=== PATIENT | female | born 1955 | race Caucasian/White ===

== ENCOUNTER 2016-10-23 18:56 | Emergency (ER) | payer BC, OTHER ==
--- NOTE | 2016-10-23 21:19 | UC ---
Ear Complaint HPI - History of Current Complaint Chief Complaint: UCDizziness Stated Complaint: LEFT EAR PAIN,VERTIGO Time Seen by Provider: 10/23/16 21:04 Hx Obtained From: Patient ?: No Onset/Duration: Sudden Onset - diminished hearing with tinnitis with rushing sound about 4:30PM., Lasting Hours - 5, Still Present Severity Initially: Mild Severity Currently: Mild Aggravating Factors: Nothing Alleviating Factors: Nothing Associated Signs/Symptoms: Positive: Hearing Loss Related History: Other (Noted In Comments) - Weird feeling in the head. - Allergies/Home Medications Allergies/Adverse Reactions: Allergies Allergy/AdvReac Type Severity Reaction Status Date / Time Losartan [From Cozaar] Allergy Severe Swelling Verified 10/23/16 20:57 Of Face,Lips,& Throat Home Medications: Home Medications Atorvastatin* [Lipitor 20 MG*] 20 mg PO QPM 10/23/16 [History Confirmed 10/23/16 ] Cholecalciferol [D 1000] 1,000 unit PO DAILY 10/23/16 [History Confirmed ] Clopidogrel TAB* [Plavix TAB*] 75 mg PO DAILY 10/23/16 [History Confirmed ] Fluoxetine HCl [Prozac] 40 mg PO DAILY 10/23/16 [History Confirmed 10/23/16] Furosemide TAB* [Lasix TAB*] 40 mg PO DAILY 10/23/16 [History Confirmed 10/23/16 ] Latanoprost 0.005% OPTH (NF) [Xalatan 0.005% OPTH*] 1 drop BOTH EYES DAILY 10/23 [History Confirmed 10/23/16] [place]-3 Fatty Acids [Fish Oil] 1,000 mg PO DAILY 10/23/16 [History Confirmed ] Pantoprazole TAB (NF) [Protonix TAB (NF)] 40 mg PO DAILY 10/23/16 [History Confirmed 10/23/16] Potassium Chlor TAB* [Klor Con ER TAB 10 MEQ*] 10 meq PO DAILY 10/23/16 [ History Confirmed 10/23/16] PMH/Surg Hx/FS Hx/Imm Hx Cardiovascular History Of: Reports: Hypertension Neurological History Of: Reports: TIA - 10 years ago. - Surgical History Surgical History: Yes Surgery Procedure, Year, and Place: RIGHT ROTATOR CUFF 2015. LEFT ANKLE ORAF. GALL BLADDER REMOVAL. TONSILLECTOMY - Family History Known Family History: Positive: Cardiac Disease, Hypertension Negative: Diabetes - Social History Occupation: Employed Full-time - [employer] Lives: Alone Alcohol Use: Weekly Substance Use Type: None Smoking Status (MU): Former Smoker Have You Smoked in the Last Year: No When Did the Patient Quit Smoking/Using Tobacco: QUIT AT AGE 36 Review of Systems ENT: Other - Hearing loss Respiratory: Cough - for the last month All Other Systems Reviewed And Are Negative: Yes Physical Exam Triage Information Reviewed: Yes Appearance: Well-Appearing, No Pain Distress, Well-Nourished Vital Signs: Initial Vital Signs Temp 97.5 F 10/23/16 21:01 Pulse 87 10/23/16 21:01 Resp 18 10/23/16 21:01 BP 154/85 10/23/16 21:01 Pulse Ox 99 10/23/16 21:01 Vital Signs Reviewed: Yes Eyes: Positive: Conjunctiva Clear ENT: Positive: Pharynx normal, Nasal congestion - with allergic changes., TMs normal - but ? retraction left TM, Other: - Vance test localizes to the left Neck exam: Normal Respiratory: Positive: Lungs clear, Wheezing - expiratory with coughing. Cardiovascular Exam: Normal Musculoskeletal Exam: Normal Neurological Exam: Normal Psychological Exam: Normal Skin Exam: Normal Ear Complaint Course/Dx - Differential Dx/Diagnosis Differential Diagnosis/HQI/PQRI: Barotrauma, Otitis Media, Perforated TM Provider Diagnoses: Acute left conductive hearing loss. Allergic rhinitis. Acute bronchospasm Discharge - Discharge Plan Condition: Stable Disposition: HOME Prescriptions: predniSONE TAB* [Deltasone TAB*] 20 mg PO DAILY #18 tab Patient Education Materials: Hearing Loss (GEN), Eustachian Tube Dysfunction ( GEN), Allergic Rhinitis (ED), Bronchospasm (ED), Prednisone (By mouth) Additional Instructions: You are free to see any ENT in [place]. Call the offices and explain that you were instructed to make a follow up tomorrow. NEILMED SINUS RINSE: CHECK OUT AT [facility] Saline nasal wash helps with mucous, allergies and congestion. It can be used up to twice a day or only as needed. Use lukewarm tap water. It does not have to be sterilized or distilled water. Do 1/3 on each side and snort out of both nostrils. Repeat the process with 1/6 of the bottle on each side with snorting in between to finish the solution in the bottle NASAL SPRAYS AND DROPS: Afrin in the PUMP/ MIST bottle. Tilt your head down and look at the floor while doing a strong sniff with the spray. Decongestant nasal sprays and drops often give dramatic relief from congestion. They are often recommended for patients with sinus infection to assist with sinus drainage. Persons with high blood pressure should consult the doctor before using these nasal sprays. Afrin and Grant-Synephrine are common [id number] preparations. They should not be used for more than five days, as "rebound" congestion can occur - - the congestion flares as the drug wears off. A way of dealing with this rebound congestion problem is to medicate only one nostril each time, allowing the other nostril to recover from the medicine' s effects. When you no longer need the drug during the day, spray only one nostril each night. This helps you sleep well without severe rebound congestion. Call the doctor if you develop severe headache, palpitations, or chest pain.
[2016-10-23 21:56] VITALS: BP 155/79
== END 2016-10-23 22:00 | disposition home or self-care (01) ==
LOC: UCCORT 18:56
DX: H90.2 Conductive hearing loss, unspecified (principal); J30.9 Allergic rhinitis, unspecified; J98.01 Acute bronchospasm; Z88.8 Allergy status to other drugs, medicaments and biological substances; I10 Essential (primary) hypertension; Z86.73 Personal history of transient ischemic attack (TIA), and cerebral infarction without residual deficits; Z79.01 Long term (current) use of anticoagulants; Z90.49 Acquired absence of other specified parts of digestive tract; Z87.891 Personal history of nicotine dependence
CPT/HCPCS: 99202; G0463

== ENCOUNTER 2018-03-20 11:28 | Emergency (ER) | payer OTHER ==
[2018-03-20 11:59] VITALS: BP 148/49
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
--- NOTE | 2018-03-20 13:02 | RAD ---
HISTORY: right wrist pain COMPARISONS: None VIEWS: 3, Frontal, lateral, and oblique views of the right wrist FINDINGS: BONE DENSITY: Normal. BONES: There is no displaced fracture. JOINTS: There is osteoarthritis of the first CMC joint. ALIGNMENT: There is no dislocation. SOFT TISSUES: Unremarkable. OTHER FINDINGS: None. IMPRESSION: OSTEOARTHRITIS. NO ACUTE OSSEOUS INJURY. IF SYMPTOMS PERSIST, RECOMMEND REPEAT IMAGING.
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
== END 2018-03-20 13:36 | disposition home or self-care (01) ==
LOC: UCCORT 11:28
DX: S63.501A Unspecified sprain of right wrist, initial encounter (principal); S13.9XXA Sprain of joints and ligaments of unspecified parts of neck, initial encounter; S20.219A Contusion of unspecified front wall of thorax, initial encounter; S20.20XA Contusion of thorax, unspecified, initial encounter; V43.92XA Unspecified car occupant injured in collision with other type car in traffic accident, initial encounter; Y93.89 Activity, other specified; Y92.9 Unspecified place or not applicable; Z88.8 Allergy status to other drugs, medicaments and biological substances; I10 Essential (primary) hypertension; Z88.6 Allergy status to analgesic agent; Z87.891 Personal history of nicotine dependence
CPT/HCPCS: 72040; 99212; G0463

== ENCOUNTER 2019-04-09 21:04 | Emergency (ER) | payer MEDICARE, OTHER ==
[2019-04-09 21:27] VITALS: BP 157/69
--- NOTE | 2019-04-09 21:41 | UC ---
General HPI - HPI Summary HPI Summary: 1. itchy rash to both lower legs and R forearm x 10 days. it began after gardening. pt notes was blister like as onset but is now scabbed from itching. L knee has one new line that is blister like. 2. she now has a second rash that is different x 1 day. it is red, involves her trunk and is hive like plus very itchy. pt denies any new exposures, illness. she self tx with benadryl and a topical steroid. - History of Current Complaint Chief Complaint: UCRash Stated Complaint: RASH BACK Time Seen by Provider: 04/09/19 21:23 Hx Obtained From: Patient Onset/Duration: Gradual Onset Timing: Constant Pain Intensity: 0 Associated Signs & Symptoms: Negative: Fever - Allergy/Home Medications Allergies/Adverse Reactions: Allergies Allergy/AdvReac Type Severity Reaction Status Date / Time losartan [From [facility]] Allergy Swelling Verified 03/20/18 11:48 Of Face,Lips,& Throat Home Medications: Home Medications Metoprolol Succinate XL TAB* [Toprol XL TAB*] 25 mg PO DAILY 04/09/19 [History Confirmed 04/09/19] amLODIPine TAB* [Norvasc 5 mg TAB*] 10 mg PO DAILY 04/09/19 [History Confirmed 04/09/19] PMH/Surg Hx/FS Hx/Imm Hx Endocrine History: Dyslipidemia Cardiovascular History: Hypertension GI/ History: Gastroesophageal Reflux Psychological History: Depression - Surgical History Surgical History: Yes Surgery Procedure, Year, and Place: RIGHT ROTATOR CUFF 2015. LEFT ANKLE ORAF. GALL BLADDER REMOVAL. TONSILLECTOMY - Family History Known Family History: Positive: Cardiac Disease, Hypertension Negative: Diabetes - Social History Alcohol Use: 1 wine daily Substance Use Type: None Smoking Status (MU): Former Smoker Have You Smoked in the Last Year: No When Did the Patient Quit Smoking/Using Tobacco: 1990 Review of Systems All Other Systems Reviewed And Are Negative: Yes Constitutional: Negative: Fever, Chills Skin: Positive: Rash Respiratory: Negative: Shortness Of Breath, Cough Physical Exam Triage Information Reviewed: Yes Appearance: Well-Appearing Vital Signs: Initial Vital Signs Temp 98.1 F 04/09/19 21:17 Pulse 70 04/09/19 21:17 Resp 20 04/09/19 21:17 BP 157/69 04/09/19 21:17 Pulse Ox 98 04/09/19 21:17 Vital Signs Reviewed: Yes Eyes: Positive: Conjunctiva Clear Neck: Positive: Supple Respiratory: Positive: No respiratory distress Musculoskeletal: Positive: ROM Intact Neurological: Positive: Alert Psychological: Positive: Age Appropriate Behavior Skin Exam: Normal Skin: Positive: Rashes - 1. linear excoriated areas to both lower legs and R forearm that have scabbed. no erythema, streaking, burrows, blistering and not petechial. 2. red areas on trunk that are confluent on her back. none are petechial, scaley or blistering. this rash does micheal. Course/Dx - Differential Dx - Multi-Symptom Differential Diagnoses: Other - does not look c/w infestations, fungal or bacterial infections. legs c/w contact dermatitis and trunk appears c/w hives. will tx with po steroids and close f/u for rechck. - Diagnoses Provider Diagnosis: Hives, Contact dermatitis Discharge - Sign-Out/Discharge Documenting (check all that apply): Patient Departure All imaging exams completed and their final reports reviewed: No Studies - Discharge Plan Condition: Stable Disposition: HOME Prescriptions: predniSONE TAB* [Deltasone 20 MG TAB*] 40 mg PO DAILY 5 Days #10 tab Patient Education Materials: Contact Dermatitis (DC), Urticaria (ED) Referrals: Nell Renteria MD [Primary Care Provider] - 3 Days - Billing Disposition and Condition Condition: STABLE Disposition: Home
[2019-04-09] MEDS ORDERED: predniSONE TAB* 20 MG PO ONE (21:46)
== END 2019-04-09 21:55 | disposition home or self-care (01) ==
LOC: UCCORT 21:04
DX: L50.9 Urticaria, unspecified (principal); L25.9 Unspecified contact dermatitis, unspecified cause; I10 Essential (primary) hypertension; Z87.891 Personal history of nicotine dependence
CPT/HCPCS: 99212; G0463; J7512

== ENCOUNTER 2019-07-31 14:01 | Emergency (ER) | payer MEDICARE ==
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
[2019-07-31 14:40] VITALS: BP 135/106
[2019-07-31] MEDS ORDERED: Lidocaine 1% MPF ** 5 ML VIAL INJ ONE (15:09)
--- NOTE | 2019-07-31 15:43 | UC ---
Skin Complaint HPI - HPI Summary HPI Summary: 64-year-old woman comes in with a chief complaint of painful swelling in the left lower back. Started several days ago with what she thought was a pimple. Its gradually been growing and is more tender to palpation. No fevers or chills. No history of MRSA. - History of Current Complaint Chief Complaint: UCSkin Time Seen by Provider: 07/31/19 15:03 Stated Complaint: ABCESS ON BACK Pain Intensity: 7 - Allergy/Home Medications Allergies/Adverse Reactions: Allergies Allergy/AdvReac Type Severity Reaction Status Date / Time losartan [From Cozaar] Allergy Swelling Verified 07/31/19 14:40 Of Face,Lips,& Throat Home Medications: Home Medications Bupropion XL* [Wellbutrin XL *] 150 mg PO DAILY 07/31/19 [History Confirmed 12/14] PMH/Surg Hx/FS Hx/Imm Hx Previously Healthy: Yes Endocrine History: Dyslipidemia Cardiovascular History: Hypertension GI/ History: Gastroesophageal Reflux - Surgical History Surgical History: Yes Surgery Procedure, Year, and Place: RIGHT ROTATOR CUFF 2015. LEFT ANKLE ORAF. GALL BLADDER REMOVAL. TONSILLECTOMY - Family History Known Family History: Positive: Cardiac Disease, Hypertension Negative: Diabetes - Social History Alcohol Use: Weekly Substance Use Type: None Smoking Status (MU): Former Smoker Have You Smoked in the Last Year: No When Did the Patient Quit Smoking/Using Tobacco: 1990 Review of Systems All Other Systems Reviewed And Are Negative: Yes Constitutional: Positive: Negative Skin: Positive: Other - SEE HPI Eyes: Positive: Negative ENT: Positive: Negative Respiratory: Positive: Negative Cardiovascular: Positive: Negative Gastrointestinal: Positive: Negative Motor: Positive: Negative Neurovascular: Positive: Negative Musculoskeletal: Positive: Negative, Calf Tenderness Psychological: Positive: Negative Is Patient Immunocompromised?: No Physical Exam Triage Information Reviewed: Yes Appearance: Well-Appearing, No Pain Distress, Well-Nourished Vital Signs: Initial Vital Signs Temp 98.5 F 07/31/19 14:34 Pulse 65 07/31/19 14:34 Resp 18 07/31/19 14:34 BP 135/106 07/31/19 14:34 Pulse Ox 100 07/31/19 14:34 Vital Signs Reviewed: Yes Eye Exam: Normal Eyes: Positive: Conjunctiva Clear Neck: Positive: Supple Respiratory: Positive: No respiratory distress Musculoskeletal: Positive: Strength Intact, ROM Intact Neurological: Positive: Alert, Muscle Tone Normal Psychological: Positive: Age Appropriate Behavior Skin: Positive: Other - Left lower back at the beltline there is an erythematous fluctuant swelling in the subcutaneous tissue. Procedures - Incision and Drainage Left Lower Back Site: left lower back; pus expressed Anesthesia: Local, Lidocaine - 1% Instrument(s): Scalpel, Needle Packing: Gauze - 1/4 inch iodoform gauze; culture sent Course/Dx - Course Course Of Treatment: Put the patient on doxycycline. She is going to remove the iodoform gauze in the next to 3 days if it hasn't fallen out already. Reevaluate if worse or not improving. - Diagnoses Provider Diagnosis: Abscess of back Discharge ED - Sign-Out/Discharge Documenting (check all that apply): Patient Departure All imaging exams completed and their final reports reviewed: No Studies - Discharge Plan Condition: Stable Disposition: HOME Prescriptions: DOXYcycline CAP(*) [DOXYcycline 100MG CAP(*)] 100 mg PO BID #[id number] cap Patient Education Materials: Abscess (ED) Referrals: Nell Renteria MD [Primary Care Provider] - Additional Instructions: FOLLOW UP WITH YOUR DOCTOR IF NOT COMPLETELY IMPROVED. GET REEVALUATED SOONER IF NOT IMPROVING OR WORSE OR ANY QUESTIONS OR CONCERNS. - Billing Disposition and Condition Condition: STABLE Disposition: Home
== END 2019-07-31 15:56 | disposition home or self-care (01) ==
LOC: UCCORT 14:01
DX: L02.212 Cutaneous abscess of back [any part, except buttock and flank] (principal); I10 Essential (primary) hypertension; Z87.891 Personal history of nicotine dependence; Z82.49 Family history of ischemic heart disease and other diseases of the circulatory system; Z88.8 Allergy status to other drugs, medicaments and biological substances
CPT/HCPCS: 10060; 87070; 87077; 87205; 87640; 87641; 99212; G0463